=== PATIENT | male | born 1945 | race African-American/Black ===

== ENCOUNTER → 2021-07-28 | Outpatient (CLI) | payer MEDICARE ==
[~2021-07-28] MED LIST: ASPI-630 PO; CLOP75TA PO; ENAL2.5T9 PO; FINA5TAB4 PO; INSU100V13 SQ; LATA7.5D OU; LEVO50TA PO; LOVA20TA2 PO; MELA5TAB20 PO; METF10007 PO; METO25TA2 PO; NAPR220C4 PO; NITR100C PO; OMEP40CA7 PO; OXYB5TAB33 PO; TAMS0.4C97 PO; ranitidine PO
== END ==
LOC: LAB 16:29
PROVIDERS: ATTEND Internal Medicine Gastroenterology
DX: Z01.812 Encounter for preprocedural laboratory examination (principal); Z20.822 Contact with and (suspected) exposure to COVID-19
CPT/HCPCS: U0003

== ENCOUNTER → 2021-07-31 | Day surgery (SDC) | payer MEDICARE ==
[~2021-07-31] MED LIST changes: +IPRATRPIUM/ALBUTEROL 0.5/2.5MG 3 ML NEBU. NEB PRN; +IV RINGERS SOLUTION,LACTATED 1,000 ML IV SCH; +MIDAZOLAM HCL PF 2 MG/2 ML VIAL. IV ONE; +ONDANSETRON PF 4 MG/2 ML VIAL. IV PRN
[2021-07-31 11:19] VITALS: BP 148/88
--- NOTE | 2021-07-31 11:23 | NUR ---
07/31/21 Case canceled as patient did not start a bowel prep and did not hold his blood thinner as instructed. 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
== END | disposition home or self-care (01) ==
LOC: SURG 11:00
PROVIDERS: ATTEND Internal Medicine Gastroenterology
DX: Z12.11 Encounter for screening for malignant neoplasm of colon (principal); Z53.8 Procedure and treatment not carried out for other reasons; K21.9 Gastro-esophageal reflux disease without esophagitis; R13.10 Dysphagia, unspecified; Z79.82 Long term (current) use of aspirin; Z79.84 Long term (current) use of oral hypoglycemic drugs; Z79.899 Other long term (current) drug therapy; Z98.890 Other specified postprocedural states; Z88.0 Allergy status to penicillin; Z88.8 Allergy status to other drugs, medicaments and biological substances
CPT/HCPCS: 82947; J7120

== ENCOUNTER → 2021-08-11 | Outpatient (CLI) | payer MEDICARE ==
[2021-07-31 11:19] VITALS: BP 148/88
[~2021-08-11] MED LIST changes: -IPRATRPIUM/ALBUTEROL 0.5/2.5MG 3 ML NEBU. NEB PRN; -IV RINGERS SOLUTION,LACTATED 1,000 ML IV SCH; -MIDAZOLAM HCL PF 2 MG/2 ML VIAL. IV ONE; -ONDANSETRON PF 4 MG/2 ML VIAL. IV PRN
== END ==
LOC: LAB 08-10 08:18
PROVIDERS: ATTEND Internal Medicine Gastroenterology
DX: Z01.812 Encounter for preprocedural laboratory examination (principal); Z20.822 Contact with and (suspected) exposure to COVID-19
CPT/HCPCS: C9803; U0003

== ENCOUNTER → 2021-08-14 | Day surgery (SDC) | payer MEDICARE ==
[~2021-08-14] MED LIST changes: +IPRATRPIUM/ALBUTEROL 0.5/2.5MG 3 ML NEBU. NEB PRN; +IV RINGERS SOLUTION,LACTATED 1,000 ML IV SCH; +LIDOCAINE 2% PF 5 ML VIAL. ONE; +MIDAZOLAM HCL PF 2 MG/2 ML VIAL. IV ONE; +ONDANSETRON PF 4 MG/2 ML VIAL. IV PRN; +PROPOFOL 10,000 MCG/ML (20ML) VIAL IV ONE; +SODIUM PHOSPHATES 19/7GM 133 ML ENEMA. PR ONE; +SODIUM PHOSPHATES 19/7GM 133 ML ENEMA. PR PRN
[2021-08-14 13:43] VITALS: BP 124/78
--- NOTE | 2021-08-18 14:07 | PATHOLOGY ---
[facility] Accession Number: [id number] . 01 Material submitted: . stomach - ANTRUM BIOPSY . 01 Clinical history: . COLON AND EGD GERD/REFLUX SCREENING . 02 Diagnosis: Gastric biopsies, antrum: - Chronic gastritis, mild. (JPM:pit; 08/18/2021) [facility] 08/18/2021 0925 Local . 02 Comment: Sections of the gastric antral biopsy show congestion and mild chronic inflammation with a few scattered admixed eosinophils. A properly controlled immunoperoxidase stain for Helicobacter is negative for Helicobacter organisms. There is no evidence of malignancy. (JPM:pit; 08/18/2021) . Special stain performed: Immunoperoxidase stain for Helicobacter . 02 Electronically signed: . Tello Walls MD, Pathologist NPI- [id number] . 01 Gross description: . The specimen is submitted in formalin, labeled "[place], Leonardo, antrum". Received are 2 segments of pale thomas tissue ranging in size from 0.3 to 0.5 cm in maximum dimensions. The specimen is submitted entirely in cassette A1. ([facility]; 08/17/2021) NRI/NRI 08/17/2021 1539 Local . 02 Pathologist provided ICD-10: K29.50 . 02 CPT . 151726, [id number] Specimen Comment: A courtesy copy of this report has been sent to [phone], [phone] Specimen Comment: [id number] Specimen Comment: Report sent to / DR WOLF Specimen Comment: A duplicate report has been generated due to demographic updates. Performed at: 01 [facility] [address], [place], [place] [id number] MD Tito Joseph MD Phone: [phone] Performed at: 02 [facility] [address] [place], [place] [id number] MD Tello Walls MD Phone: [phone]
--- NOTE | 2021-09-16 19:00 | PDOC ---
PROVIDER NOTE PROVIDER NOTE PROVIDER NOTE Addendum to operative report from 08/14/2021 EGD. Antrum biopsy X 2 were taken with cold biopsy forceps to evaluate acue gastritis. Specimen collected: Antrum X2 MD Prabhakar 09/16/2021 Justification of Admission: Justification of Admission: Justification of Admission Dx: N/A MERCEDES CHIN MD Sep 16, 2021 19:00
== END | disposition home or self-care (01) ==
LOC: SURG 09:55
PROVIDERS: ATTEND Internal Medicine Gastroenterology
DX: Z12.11 Encounter for screening for malignant neoplasm of colon (principal); K29.50 Unspecified chronic gastritis without bleeding; K21.9 Gastro-esophageal reflux disease without esophagitis; R13.10 Dysphagia, unspecified; R12 Heartburn; K63.89 Other specified diseases of intestine; K31.89 Other diseases of stomach and duodenum; K44.9 Diaphragmatic hernia without obstruction or gangrene; I10 Essential (primary) hypertension; E11.9 Type 2 diabetes mellitus without complications; E03.9 Hypothyroidism, unspecified; Z79.82 Long term (current) use of aspirin; Z79.4 Long term (current) use of insulin; Z79.899 Other long term (current) drug therapy; Z88.8 Allergy status to other drugs, medicaments and biological substances; Z98.890 Other specified postprocedural states
CPT/HCPCS: 43239; 43450; 82947; 88305; 88342; G0121; J2001; J2704; J7120; 45380